=== PATIENT | male | born 1960 | race African-American/Black ===

== ENCOUNTER 2016-07-08 03:27 | Emergency (ER) | payer OTHER, MEDICAID ==
[~2016-07-08] VITALS: Ht 180.3 cm; Wt 136.0 kg
[~2016-07-08 03:27] MED LIST: AMLO2.5T45 PO; ATOR20TA65 PO; COLC0.6T66 PO; FEBU80TA PO; FURO20TA4 PO; HYDR-4134 PO; LEVO50TA8 PO; METO-293 PO; OMEP20CA10 PO; POLY17PO3 PO; [UNRECOGNIZED DRUG - OTHER] IH
[2016-07-08] MEDS ORDERED: FAMOTIDINE 20MG/2ML VIAL IV STA (04:05)
[2016-07-08] MEDS ORDERED: MORPHINE SULFATE 4 MG/ML CPJ (NOT FOR IM USE) IV STA (04:05)
[2016-07-08] MEDS ORDERED: SODIUM CHLORIDE 0.9% 1,000 ML IV ONE (04:05)
[2016-07-08] MEDS ORDERED: ONDANSETRON HCL 4MG/2ML VIAL IV STA (04:05)
[2016-07-08] MEDS ORDERED: LORAZEPAM 2MG/ML CPJ IV ONE (04:15)
[2016-07-08 04:37] LABS: HEMATOCRIT. 39.2 % (42.0-52.0); HEMOGLOBIN. 12.3 g/dL (14.0-18.0); LYMPHOCYTES % 10.2 % (20.0-50.0); MEAN CORPUSCULAR HEMOGLOBIN 25.6 pg (28.0-32.0); MEAN CORPUSCULAR HGB CONC 31.5 g/dL (31.0-37.0); MEAN CORPUSCULAR VOLUME 81.3 fL (80.0-94.0); MEAN PLATELET VOLUME 9.1 fl (7.4-10.4); MONOCYTES % 9.3 % (2.0-8.0); NEUTROPHILS % 77.5 % (40.0-76.0); PLATELET 161 x1000/uL (130-400); RED BLOOD CELL COUNT 4.81 mill/uL (4.7-6.1); RED CELL DISTRIBUTION WIDTH 17.9 % (11.6-14.6); WHITE BLOOD COUNT 8.9 x1000/uL (4.5-11.0)
[2016-07-08 04:40] LABS: INR 1.2; PROTHROMBIN TIME 12.8 sec
[2016-07-08 04:53] LABS: ALANINE AMINOTRANSFERASE 16 IU/L (13-61); ALBUMIN 3.1 g/dL (3.4-5.0); ANION GAP 17; CALCIUM 8.9 mg/dL (8.5-10.1); CARBON DIOXIDE 23 mEq/L (21-32); CHLORIDE 102 mEq/L (98-107); INDEX HEMOLYSI 1 (1-3); INDEX ICTERIC 1 (1-4); INDEX LIPEMIC 1 (1-3); LIPASE 516 IU/L (73-393); UREA NITROGEN BLOOD 74 mg/dL (7-21); eGFR 36 mL/min (>60)
[2016-07-08 09:04] LABS: CLARITY URINE CLEAR (CLEAR); COLOR URINE YELLOW (YELLOW); GLUCOSE URINE NEGATIVE (NEGATIVE); KETONES URINE NEGATIVE (NEGATIVE); LEUKOCYTE ESTERASE URINE NEGATIVE (NEGATIVE); NITRITE URINE NEGATIVE (NEGATIVE); OCCULT BLOOD URINE NEGATIVE (NEGATIVE); PH URINE 5.5 (4.5-8.0); PROTEIN URINE TRACE (NEGATIVE); SPECIFIC GRAVITY URINE 1.012 (1.005-1.030)
[2016-07-08 09:19] LABS: BACTERIA URINE TRACE; RBC URINE NONE SEEN /hpf (0-2); SQUAMOUS EPITHELIAL CELL URINE RARE /lpf (RARE/1+); WBC URINE 0-2 /hpf (0-2)
[2016-07-08 10:03] VITALS: BP 125/75
[2016-07-08] MEDS ORDERED: DIATR MEGLU/DIATRIZOATE SOLN 120ML ONE (12:01)
== END 2016-07-08 10:35 | disposition short-term general hospital (02) ==
LOC: ER 03:30
DX: R10.9 Unspecified abdominal pain (principal); Z88.8 Allergy status to other drugs, medicaments and biological substances; Z79.899 Other long term (current) drug therapy; I13.0 Hypertensive heart and chronic kidney disease with heart failure and stage 1 through stage 4 chronic kidney disease, or unspecified chronic kidney disease; N18.9 Chronic kidney disease, unspecified; I50.9 Heart failure, unspecified; E11.22 Type 2 diabetes mellitus with diabetic chronic kidney disease; J44.9 Chronic obstructive pulmonary disease, unspecified
CPT/HCPCS: 36415; 71010; 74176; 76705; 80053; 81001; 82962; 83605; 83690; 85025; 85610; 93005; 96361; 96374; 96375; 99291; J2060; J2270; J2405; J3490; J7030; J7040; Q9963

== ENCOUNTER 2016-09-20 14:15 | Emergency (ER) | payer OTHER, MEDICAID ==
[~2016-09-20] VITALS: Ht 172.7 cm; Wt 106.0 kg
[2016-09-20 15:11] LABS: HEMATOCRIT. 43.4 % (42.0-52.0); HEMOGLOBIN. 13.8 g/dL (14.0-18.0); MEAN CORPUSCULAR HEMOGLOBIN 24.2 pg (28.0-32.0); MEAN CORPUSCULAR VOLUME 76.1 fL (80.0-94.0); MEAN PLATELET VOLUME 9.4 fl (7.4-10.4); PLATELET 154 x1000/uL (130-400); RED CELL DISTRIBUTION WIDTH 18.3 % (11.6-14.6)
[2016-09-20 15:15] LABS: CARBON DIOXIDE 34 mEq/L (21-32); CHLORIDE 90 mEq/L (98-107)
[2016-09-20 15:16] LABS: INR 1.3; PARTIAL THROMBOPLASTIN TIME 30.5 sec (24.0-34.0); PROTHROMBIN TIME 13.2 sec
[2016-09-20 16:06] LABS: CLARITY URINE CLEAR (CLEAR); COLOR URINE YELLOW (YELLOW); GLUCOSE URINE NEGATIVE (NEGATIVE); KETONES URINE NEGATIVE (NEGATIVE); LEUKOCYTE ESTERASE URINE NEGATIVE (NEGATIVE); NITRITE URINE NEGATIVE (NEGATIVE); OCCULT BLOOD URINE NEGATIVE (NEGATIVE); PH URINE 7.5 (4.5-8.0); PROTEIN URINE TRACE (NEGATIVE)
[2016-09-20] MEDS ORDERED: SODIUM CHLORIDE 0.9% 1,000 ML IV ONE (16:21)
[2016-09-20 17:03] LABS: PLATELET ESTIMATE NORMAL
[2016-09-20 19:45] VITALS: BP 129/79
== END 2016-09-20 20:13 | disposition short-term general hospital (02) ==
LOC: ER 14:30
DX: K59.00 Constipation, unspecified (principal); N17.9 Acute kidney failure, unspecified; E86.0 Dehydration; R26.89 Other abnormalities of gait and mobility; I11.0 Hypertensive heart disease with heart failure; I50.9 Heart failure, unspecified; E11.9 Type 2 diabetes mellitus without complications; J44.9 Chronic obstructive pulmonary disease, unspecified
CPT/HCPCS: 36415; 71010; 74176; 80053; 81001; 83690; 85025; 85610; 85730; 87086; 96360; 99285; J7030; A4315

== ENCOUNTER 2016-11-02 15:39 | Emergency (ER) | payer OTHER, MEDICAID ==
[~2016-11-02] VITALS: Ht 172.7 cm; Wt 126.0 kg
[2016-11-02] MEDS: MORPHINE SULFATE 4 MG/ML CPJ (NOT FOR IM USE) IV STA (15:53)
[2016-11-02] MEDS: ONDANSETRON HCL 4MG/2ML VIAL IV STA (15:53)
[2016-11-02 17:03] LABS: BASOPHILS % 0.8 % (0.0-2.0); EOSINOPHILS % 1.6 % (0.0-5.0); HEMATOCRIT. 35.4 % (42.0-52.0); HEMOGLOBIN. 11.5 g/dL (14.0-18.0); LYMPHOCYTES % 7.7 % (20.0-50.0); MEAN CORPUSCULAR HEMOGLOBIN 25.2 pg (28.0-32.0); MEAN CORPUSCULAR VOLUME 78.1 fL (80.0-94.0); MEAN PLATELET VOLUME 9.1 fl (7.4-10.4); MONOCYTES % 5.1 % (2.0-8.0); NEUTROPHILS % 84.8 % (40.0-76.0); PLATELET 120 x1000/uL (130-400); RED BLOOD CELL COUNT 4.54 mill/uL (4.7-6.1); RED CELL DISTRIBUTION WIDTH 19.4 % (11.6-14.6)
[2016-11-02 17:08] LABS: CHLORIDE 103 mEq/L (98-107)
[2016-11-02 17:17] LABS: CARBON DIOXIDE 28 mEq/L (21-32)
[2016-11-02 17:21] LABS: INR 1.2; PARTIAL THROMBOPLASTIN TIME 33.1 sec (24.0-34.0); PROTHROMBIN TIME 12.2 sec
[2016-11-02 17:28] LABS: CLARITY URINE CLOUDY (CLEAR); COLOR URINE YELLOW (YELLOW); GLUCOSE URINE NEGATIVE (NEGATIVE); KETONES URINE TRACE (NEGATIVE); LEUKOCYTE ESTERASE URINE 1+ (NEGATIVE); NITRITE URINE NEGATIVE (NEGATIVE); OCCULT BLOOD URINE TRACE (NEGATIVE); PROTEIN URINE NEGATIVE (NEGATIVE); SPECIFIC GRAVITY URINE 1.016 (1.005-1.030)
[2016-11-02] MEDS: SODIUM CHLORIDE 0.9% 1,000 ML IV ONE (17:42)
[2016-11-02] MEDS: KETOROLAC 15MG/ML VIAL IV ONE (20:38)
[2016-11-02 22:19] VITALS: BP 142/78
== END 2016-11-02 22:55 | disposition short-term general hospital (02) ==
LOC: ER 15:58 → CANBEDREQ 23:08
DX: K59.00 Constipation, unspecified (principal); J90 Pleural effusion, not elsewhere classified; I13.2 Hypertensive heart and chronic kidney disease with heart failure and with stage 5 chronic kidney disease, or end stage renal disease; E11.22 Type 2 diabetes mellitus with diabetic chronic kidney disease; N18.6 End stage renal disease; I50.9 Heart failure, unspecified; J44.9 Chronic obstructive pulmonary disease, unspecified; R18.8 Other ascites
CPT/HCPCS: 36415; 71010; 74176; 80053; 81001; 82962; 83690; 85025; 85610; 85730; 93005; 96361; 96374; 99285; J1885; J2270; J2405; J7030

== ENCOUNTER 2017-08-07 07:18 | Emergency (ER) | payer OTHER, MEDICAID ==
[~2017-08-07] VITALS: Ht 177.8 cm; Wt 100.0 kg
[2017-08-07] MEDS ORDERED: ONDANSETRON HCL 4MG/2ML VIAL IV STA (07:40)
[2017-08-07] MEDS ORDERED: MORPHINE SULFATE 4 MG/ML CPJ (NOT FOR IM USE) IV STA (07:40)
[2017-08-07 07:57] LABS: CLARITY URINE CLEAR (CLEAR); COLOR URINE YELLOW (YELLOW); KETONES URINE NEGATIVE (NEGATIVE); LEUKOCYTE ESTERASE URINE NEGATIVE (NEGATIVE); NITRITE URINE NEGATIVE (NEGATIVE); OCCULT BLOOD URINE NEGATIVE (NEGATIVE); PH URINE 5.5 (4.5-8.0); PROTEIN URINE 1+ (NEGATIVE); SPECIFIC GRAVITY URINE 1.015 (1.005-1.030); UROBILINOGEN URINE 0.2 E.U./dL (0.2-1.0)
[2017-08-07 08:28] LABS: BASOPHILS % 0.9 % (0.0-2.0); HEMATOCRIT. 39.2 % (42.0-52.0); HEMOGLOBIN. 13.3 g/dL (14.0-18.0); MEAN CORPUSCULAR VOLUME 82.7 fL (80.0-94.0); MEAN PLATELET VOLUME 9.4 fl (7.4-10.4); MONOCYTES % 5.5 % (2.0-8.0); NEUTROPHILS % 80.6 % (40.0-76.0); PLATELET 100 x1000/uL (130-400); RED BLOOD CELL COUNT 4.74 mill/uL (4.7-6.1); RED CELL DISTRIBUTION WIDTH 20.1 % (11.6-14.6)
[2017-08-07 08:29] LABS: CHLORIDE 109 mEq/L (98-107); INR 1.1; PARTIAL THROMBOPLASTIN TIME 29.3 sec (23.4-31.0)
[2017-08-07] MEDS ORDERED: SODIUM CHLORIDE 0.9% 500 ML IV ONE (09:45)
[2017-08-07 12:03] VITALS: BP 108/55
== END 2017-08-07 12:35 | disposition home or self-care (01) ==
LOC: ER 07:26
DX: R33.8 Other retention of urine (principal); N40.1 Benign prostatic hyperplasia with lower urinary tract symptoms; I11.0 Hypertensive heart disease with heart failure; I50.9 Heart failure, unspecified; E11.9 Type 2 diabetes mellitus without complications; J44.9 Chronic obstructive pulmonary disease, unspecified; Z89.9 Acquired absence of limb, unspecified
CPT/HCPCS: 36415; 51702; 71045; 80053; 81003; 83605; 83690; 85025; 85610; 85730; 87040; 93005; 96374; 96375; 99285; J2270; J2405; J7030; J7040; A4315

== ENCOUNTER 2017-08-22 22:26 | Emergency (ER) | payer OTHER, MEDICAID ==
[~2017-08-22] VITALS: Ht 170.2 cm; Wt 136.0 kg
[2017-08-22] MEDS ORDERED: ONDANSETRON HCL 4MG/2ML VIAL IV STA (23:38)
[2017-08-22] MEDS ORDERED: MORPHINE SULFATE 4 MG/ML CPJ (NOT FOR IM USE) IV STA (23:38)
[2017-08-22] MEDS ORDERED: SODIUM CHLORIDE 0.9% 1,000 ML IV ONE (23:38)
[2017-08-23 00:10] LABS: BASOPHILS % 0.9 % (0.0-2.0); EOSINOPHILS % 2.4 % (0.0-5.0); HEMATOCRIT. 37.5 % (42.0-52.0); HEMOGLOBIN. 12.6 g/dL (14.0-18.0); LYMPHOCYTES % 12.3 % (20.0-50.0); MEAN CORPUSCULAR HEMOGLOBIN 28.1 pg (28.0-32.0); MEAN CORPUSCULAR VOLUME 83.7 fL (80.0-94.0); MEAN PLATELET VOLUME 8.4 fl (7.4-10.4); MONOCYTES % 4.1 % (2.0-8.0); NEUTROPHILS % 80.3 % (40.0-76.0); PLATELET 185 x1000/uL (130-400); RED BLOOD CELL COUNT 4.48 mill/uL (4.7-6.1); RED CELL DISTRIBUTION WIDTH 17.2 % (11.6-14.6)
[2017-08-23 00:13] LABS: CHLORIDE 113 mEq/L (98-107)
[2017-08-23 00:15] LABS: INR 1.4; PROTHROMBIN TIME 14.6 sec (9.4-11.6)
[2017-08-23] MEDS ORDERED: KETOROLAC 60MG/2ML VIAL IM ONE (05:30)
[2017-08-23 14:26] VITALS: BP 110/66
== END 2017-08-23 14:28 | disposition home or self-care (01) ==
LOC: ER 22:39
DX: K62.89 Other specified diseases of anus and rectum (principal); R19.7 Diarrhea, unspecified; I11.0 Hypertensive heart disease with heart failure; I50.9 Heart failure, unspecified; E11.9 Type 2 diabetes mellitus without complications; J44.9 Chronic obstructive pulmonary disease, unspecified; Z89.431 Acquired absence of right foot; Z88.8 Allergy status to other drugs, medicaments and biological substances
CPT/HCPCS: 36415; 71045; 74176; 80053; 83605; 83690; 85025; 85610; 96361; 96372; 96374; 96375; 99285; J1885; J2270; J2405; J7030

== ENCOUNTER 2018-03-24 23:38 | Inpatient (IN) | payer OTHER, MEDICAID ==
[~2018-03-24] VITALS: Ht 160 cm; Wt 117.9 kg
[2018-03-25] VITALS (8 sets, daily range): BP systolic 96–127; BP diastolic 51–62
[2018-03-25] MEDS ORDERED: ONDANSETRON HCL 4MG/2ML INJ IV ONE (01:15)
[2018-03-25] MEDS ORDERED: DIPHENHYDRAMINE 50MG/ML VIAL IV ONE (01:15)
[2018-03-25] MEDS ORDERED: MORPHINE SULFATE 10 MG/ML CPJ IV ONE (01:15)
[2018-03-25 01:27] LABS: HEMATOCRIT. 35.4 % (42.0-52.0); HEMOGLOBIN. 11.2 g/dL (14.0-18.0); MEAN CORPUSCULAR HEMOGLOBIN 25.9 pg (28.0-32.0); MEAN PLATELET VOLUME 7.9 fl (7.4-10.4); PLATELET 214 x1000/uL (130-400); RED BLOOD CELL COUNT 4.32 mill/uL (4.7-6.1); RED CELL DISTRIBUTION WIDTH 17.5 % (11.6-14.6)
[2018-03-25 01:29] LABS: CLARITY URINE TURBID (CLEAR); COLOR URINE YELLOW (YELLOW); KETONES URINE NEGATIVE (NEGATIVE); LEUKOCYTE ESTERASE URINE 3+ (NEGATIVE); NITRITE URINE NEGATIVE (NEGATIVE); OCCULT BLOOD URINE 3+ (NEGATIVE); PH URINE 5.5 (4.5-8.0); PROTEIN URINE NEGATIVE (NEGATIVE); SPECIFIC GRAVITY URINE 1.013 (1.005-1.030); UROBILINOGEN URINE 0.2 E.U./dL (0.2-1.0)
[2018-03-25 01:33] LABS: CHLORIDE 111 mEq/L (98-107)
[2018-03-25 02:49] LABS: PLATELET ESTIMATE NORMAL
[2018-03-25] MEDS ORDERED: CEFTRIAXONE 1 G PREMIX 50 ML IV ONE (03:30)
[2018-03-25 04:44] LABS: D-DIMER 0.54 mg/L FEU (<0.50)
[2018-03-25 04:47] LABS: INR 4.4; PARTIAL THROMBOPLASTIN TIME > 200.0 sec (23.4-31.0)
[2018-03-25] MEDS ORDERED: SODIUM POLYSTYRENE SULFONATE 15 G/60 ML BOT PO ONE (05:00)
[2018-03-25] MEDS ORDERED: PIPERACILLIN SODIUM/TAZOBACTAM 4.5 G in DEXT 5% WATER 100 ML IV SCH (05:15)
[2018-03-25] MEDS ORDERED: SODIUM CHLORIDE 0.9% 1,000 ML IV SCH (09:40)
[2018-03-25] MEDS ORDERED: PIPERACILLIN/TAZ 2.25G PREMIX 50 ML IV SCH (09:45)
[2018-03-25] MEDS ORDERED: MORPHINE SULFATE 4 MG/ML CPJ (NOT FOR IM USE) IV PRN (09:45)
[2018-03-25] MEDS ORDERED: ACETAMINOPHEN 325MG TABLET PO PRN (09:45)
[2018-03-25] MEDS ORDERED: ZOLPIDEM TARTRATE 5MG TABLET PO PRN (09:45)
[2018-03-25] MEDS ORDERED: LORAZEPAM 0.5MG TABLET PO PRN (09:45)
[2018-03-25] MEDS ORDERED: DOCUSATE SODIUM 100MG CAPSULE PO PRN (09:45)
[2018-03-25] MEDS ORDERED: IPRATROPIUM/ALBUTEROL 0.5-3(2.5)MG/3ML NEB INH PRN (09:45)
[2018-03-25] MEDS ORDERED: NITROGLYCERIN 0.4MG TABLET SL SL PRN (09:45)
[2018-03-25] MEDS ORDERED: DEXTROSE 50% WATER 50ML SYRINGE IV PRN (09:45)
[2018-03-25] MEDS ORDERED: ONDANSETRON HCL 4MG/2ML INJ IV PRN (09:45)
[2018-03-25] MEDS ORDERED: MAGNESIUM/ALUMINUM HYDROXIDE/SIMETHICONE 30ML UDC PO PRN (09:45)
[2018-03-25] MEDS ORDERED: CLONIDINE 0.1MG TABLET PO PRN (09:45)
[2018-03-25] MEDS: DIPHENHYDRAMINE 50MG/ML VIAL IV PRN ×3 (11:42→21:50)
[2018-03-25] MEDS: TRAMADOL 50MG TABLET PO PRN ×2 (11:46→18:09)
[2018-03-25] MEDS: PIPERACILLIN/TAZ 3.375G PREMIX 50 ML IV SCH ×2 (12:00→18:12)
[2018-03-25] MEDS: BLOOD SUGAR DIAGNOSTIC STRIP TEST SCH ×3 (12:09→21:53)
[2018-03-25] MEDS: INSULIN LISPRO 100 UNITS/ML SUBCUT SCH ×3 (13:00→21:00)
[2018-03-25 17:54] LABS: CREATINE KINASE 128 IU/L (39-308)
[2018-03-25] MEDS ORDERED: PNEUMOCOCCAL 23-VAL P-SAC VAC 0.5 ML IM ONE (18:15)
[2018-03-25] MEDS ORDERED: INFLUENZA VIRUS VACCINE(AFLURIA) 0.5ML SYR IM ONE (18:15)
[2018-03-25] MEDS: ASCORBIC ACID 500 MG TABLET PO SCH (21:36)
[2018-03-25] MEDS: FAMOTIDINE 20MG TABLET PO SCH (21:36)
[2018-03-26] VITALS (10 sets, daily range): BP systolic 96–127; BP diastolic 51–66
[2018-03-26 00:04] LABS: CREATINE KINASE MB FRACTION 13.9 ng/mL (0.5-3.6)
[2018-03-26] MEDS: PIPERACILLIN/TAZ 3.375G PREMIX 50 ML IV SCH ×4 (00:44→18:00)
[2018-03-26 06:01] LABS: CHLORIDE 113 mEq/L (98-107)
[2018-03-26 06:41] LABS: HEMATOCRIT. 33.9 % (42.0-52.0); HEMOGLOBIN. 10.4 g/dL (14.0-18.0); MEAN CORPUSCULAR HEMOGLOBIN 25.9 pg (28.0-32.0); MEAN CORPUSCULAR VOLUME 84.4 fL (80.0-94.0); MEAN PLATELET VOLUME 8.4 fl (7.4-10.4); PLATELET 189 x1000/uL (130-400); RED BLOOD CELL COUNT 4.02 mill/uL (4.7-6.1); RED CELL DISTRIBUTION WIDTH 18.4 % (11.6-14.6)
[2018-03-26] MEDS: BLOOD SUGAR DIAGNOSTIC STRIP TEST SCH ×4 (07:30→21:00)
[2018-03-26] MEDS: INSULIN LISPRO 100 UNITS/ML SUBCUT SCH ×4 (08:00→21:00)
[2018-03-26] MEDS ORDERED: DEXTROSE 50% WATER 50ML SYRINGE IV SCH (08:15)
[2018-03-26] MEDS ORDERED: CALCIUM CHLORIDE 1GM/10ML SYR IV ONE (08:15)
[2018-03-26] MEDS ORDERED: SODIUM BICARBONATE 8.4% 1 MEQ/ML 50ML SYR IV SCH (08:15)
[2018-03-26] MEDS ORDERED: INSULIN REGULAR (HUMULIN R) UD 100 UNITS/ML SYR IV SCH (09:00)
[2018-03-26] MEDS ORDERED: SODIUM POLYSTYRENE SULFONATE 15 G/60 ML BOT PO SCH (09:00)
[2018-03-26] MEDS ORDERED: CALCIUM CHLORIDE 1000 MG in DEXTROSE 5% WATER 100 ML IV SCH (09:00)
[2018-03-26] MEDS: DIPHENHYDRAMINE 50MG/ML VIAL IV PRN (09:27)
[2018-03-26] MEDS: FAMOTIDINE 20MG TABLET PO SCH ×2 (09:30→21:00)
[2018-03-26] MEDS: ASCORBIC ACID 500 MG TABLET PO SCH ×2 (09:31→22:17)
[2018-03-26] MEDS: TRAMADOL 50MG TABLET PO PRN (09:34)
[2018-03-26] MEDS: SODIUM BICARBONATE 100 MEQ in DEXTROSE 5% WATER 1,000 ML IV SCH ×2 (11:28→20:17)
[2018-03-26 12:28] LABS: BG BASE EXCESS -8.6 mmol/L (-2.0-2.0); BG CARBOXYHEMOGLOBIN 1.3 % (0.5-1.5); BG DEOXYHEMOGLOBIN 6.8 % (0.0-5.0); BG FRACTION INSPIRED OXYGEN 21; BG HCO3 ACT 16.9 mmol/L (22.0-26.0); BG METHEMOGLOBIN 0.3 % (0.0-1.5); BG OXYGEN SATURATION 93.1 % (92.0-98.5); BG OXYHEMOGLOBIN 91.6 % (94.0-97.0); BG PCO2 34.8 mmHg (35.0-45.0); BG PH 7.305 (7.350-7.450); BG PO2 68.6 mmHg (75.0-100.0); BG SAMPLE SITE RIGHT RADIAL; BG TOTAL HEMOGLOBIN 10.5 g/dL (12.0-18.0); BG VENT MODE ROOM AIR
[2018-03-26] MEDS: MORPHINE SULFATE 10MG/5ML ORAL SOLN UDC PO PRN (13:37)
[2018-03-26 14:43] LABS: PLATELET ESTIMATE NORMAL
[2018-03-26] MEDS: VANCOMYCIN 2,000 MG in DEXT 5% WATER 500 ML IV NR ×2 (15:00→21:06)
[2018-03-26] MEDS ORDERED: SODIUM POLYSTYRENE SULFONATE 15 G/60 ML BOT PO NR ×2 (17:00→21:30)
[2018-03-26] MEDS: DOCUSATE SODIUM 100MG CAPSULE PO SCH (17:00)
[2018-03-26] MEDS: MINERAL OIL/PETROLATUM,WHITE CREAM 113GM JAR TOP SCH (17:00)
[2018-03-26] MEDS ORDERED: ATORVASTATIN CALCIUM 20MG TABLET PO SCH (21:00)
[2018-03-27] VITALS (10 sets, daily range): BP systolic 107–148; BP diastolic 53–82
[2018-03-27] MEDS: PIPERACILLIN/TAZ 3.375G PREMIX 50 ML IV SCH ×3 (00:36→13:04)
[2018-03-27] MEDS ORDERED: SODIUM POLYSTYRENE SULFONATE 15 G/60 ML BOT PO NR ×2 (01:00→13:00)
[2018-03-27] MEDS: DIPHENHYDRAMINE 50MG/ML VIAL IV PRN (03:37)
[2018-03-27] MEDS: MORPHINE SULFATE 10MG/5ML ORAL SOLN UDC PO PRN ×2 (03:56→10:03)
[2018-03-27] MEDS ORDERED: LEVOTHYROXINE SODIUM 50MCG TABLET PO SCH (07:30)
[2018-03-27] MEDS: INSULIN LISPRO 100 UNITS/ML SUBCUT SCH ×3 (08:00→17:40)
[2018-03-27] MEDS: BLOOD SUGAR DIAGNOSTIC STRIP TEST SCH ×3 (08:21→17:40)
[2018-03-27 08:59] LABS: HEMATOCRIT. 32.3 % (42.0-52.0); MEAN CORPUSCULAR HEMOGLOBIN 25.8 pg (28.0-32.0); MEAN PLATELET VOLUME 8.4 fl (7.4-10.4); PLATELET 180 x1000/uL (130-400); RED BLOOD CELL COUNT 3.89 mill/uL (4.7-6.1)
[2018-03-27] MEDS: FAMOTIDINE 20MG TABLET PO SCH ×2 (09:00→09:08)
[2018-03-27] MEDS: DOCUSATE SODIUM 100MG CAPSULE PO SCH ×2 (09:08→17:32)
[2018-03-27] MEDS: ASCORBIC ACID 500 MG TABLET PO SCH (09:09)
[2018-03-27] MEDS: MINERAL OIL/PETROLATUM,WHITE CREAM 113GM JAR TOP SCH ×2 (09:11→17:32)
[2018-03-27 10:18] LABS: NUCLEATED RED BLOOD CELLS 1 /100 WBC; PLATELET ESTIMATE NORMAL
[2018-03-27 11:01] LABS: CHLORIDE 111 mEq/L (98-107)
[2018-03-27 11:11] LABS: PHOSPHORUS 5.4 mg/dL (2.5-4.9)
[2018-03-27] MEDS ORDERED: MORPHINE SULFATE 10 MG/ML CPJ IV PRN (15:45)
[2018-03-27] MEDS ORDERED: MAGNESIUM 2 G PREMIX 50 ML IV NR (16:30)
[2018-03-27] MEDS ORDERED: VANCOMYCIN 1 G PREMIX 200 ML IV SCH (18:00)
[2018-03-27] MEDS ORDERED: PIPERACILLIN/TAZ 2.25G PREMIX 50 ML IV SCH (18:00)
[2018-03-28] MEDS ORDERED: FAMOTIDINE 20MG TABLET PO SCH (09:00)
== END 2018-03-27 19:00 | disposition short-term general hospital (02) | DRG 871 ==
LOC: ER 23:38 → 5EST 03-25 05:11 → ENRESERV 03-25 08:02 → EDBEDREQ 03-25 08:03
PROVIDERS: ADMIT Internal Medicine; ATTEND Internal Medicine
DX: A41.89 Other specified sepsis (principal); N17.0 Acute kidney failure with tubular necrosis; E43 Unspecified severe protein-calorie malnutrition; N39.0 Urinary tract infection, site not specified; D62 Acute posthemorrhagic anemia; E87.2 Acidosis; L03.116 Cellulitis of left lower limb; D68.9 Coagulation defect, unspecified; Z68.42 Body mass index [BMI] 45.0-49.9, adult; K62.89 Other specified diseases of anus and rectum; E03.9 Hypothyroidism, unspecified; E66.01 Morbid (severe) obesity due to excess calories; E78.00 Pure hypercholesterolemia, unspecified; E78.5 Hyperlipidemia, unspecified; E83.39 Other disorders of phosphorus metabolism; E83.42 Hypomagnesemia; E83.51 Hypocalcemia; E87.5 Hyperkalemia; H54.7 Unspecified visual loss; I11.0 Hypertensive heart disease with heart failure; I48.91 Unspecified atrial fibrillation; K59.00 Constipation, unspecified; M10.9 Gout, unspecified; E11.319 Type 2 diabetes mellitus with unspecified diabetic retinopathy without macular edema; R09.02 Hypoxemia; E11.40 Type 2 diabetes mellitus with diabetic neuropathy, unspecified; E11.21 Type 2 diabetes mellitus with diabetic nephropathy; E11.51 Type 2 diabetes mellitus with diabetic peripheral angiopathy without gangrene; R07.89 Other chest pain; N41.9 Inflammatory disease of prostate, unspecified; L28.0 Lichen simplex chronicus; Z79.4 Long term (current) use of insulin; Z88.9 Allergy status to unspecified drugs, medicaments and biological substances; Z86.711 Personal history of pulmonary embolism; Z86.718 Personal history of other venous thrombosis and embolism; Z82.49 Family history of ischemic heart disease and other diseases of the circulatory system; Z89.431 Acquired absence of right foot; Z74.01 Bed confinement status
CPT/HCPCS: 36415; 36600; 71045; 74176; 80048; 82375; 82550; 82553; 82805; 82962; 83605; 83735; 83880; 84100; 84484; 85379; 87070; 87077; 87186; 93005; 93970; 96361; 96374; 96375; 99285; J0696; J1200; J1815; J2270; J2405; J2543; J3370; J3475; J3490; J7030; J7050; J7060; J7070